=== PATIENT | male | born 1955 | race Caucasian/White ===

== ENCOUNTER 2023-05-12 07:57 | Outpatient (CLI) | payer OTHER, SELFPAY ==
[2023-05-15 14:15] LABS: FSH 5.7 mIU/mL (1.6-8.0)
[2023-05-16 17:28] LABS: Testosterone Free 64.1 pg/mL (35.0-155.0); Testosterone Total 366 ng/dL (250-1100)
== END 2023-05-12 07:58 | disposition home or self-care (01) ==
PROVIDERS: PCP Family Medicine; Visit Provider Family Medicine
DX: R53.83 Other fatigue (principal)
CPT/HCPCS: 36415; 82607; 83001; 83002; 84402; 84403

== ENCOUNTER 2023-10-12 08:47 | Emergency (ER) | payer OTHER, SELFPAY ==
[2023-10-12 08:57] VITALS: BP 147/96; PULSE 77; RESP 16; TEMP 37; O2SAT 100
--- NOTE | 2023-10-12 09:38 | ED.BACK ---
HPI - Back Pain/Injury General Chief Complaint: Back Pain/Injury Stated Complaint: R HIP/LEG PAIN Time Seen by Provider: 10/12/23 09:27 Source: patient and RN notes reviewed Mode of arrival: ambulatory Limitations: no limitations History of Present Illness HPI Narrative: Patient presents today complaining of a 1+ week history of had right low back pain radiating to the right buttock and down to the right ankle. Denies known injury or trauma. States he has had sciatica on the left side in the past and this feels similar. Denies numbness or tingling in the genitals lower leg. Currently rates his pain 9/10 and has been applying ice without relief. He has not tried any [id number] medication for symptoms prior to arrival. Denies loss of bowel or bladder control. Related Data Allergies Allergy/AdvReac Type Severity Reaction Status Date / Time No Known Allergies Allergy Unknown Verified 07/20/23 08:26 Review of Systems Review of Systems: CONSTITUTIONAL: Denies body aches, fever, chills, or sweats. EYES: Denies visual changes, redness, or discharge. ENT: Denies rhinorrhea, congestion, sore throat, or otalgia. CARDIOVASCULAR: Denies chest pain, palpitations, or edema. RESPIRATORY: Denies cough or dyspnea. GASTROINTESTINAL: Denies abdominal pain, nausea, vomiting, or diarrhea. GENITOURINARY: Denies dysuria or hematuria. SKIN: Denies rash, itching, or wounds. MUSCULOSKELETAL: Denies joint pain, or myalgia.+ right low back pain NEUROLOGIC: Denies headache, numbness, tingling, or weakness. PSYCH: Denies depression or anxiety. [facility] Past Medical History Medical History Asthma Hypertension Reactive airway disease Family History Family History Father Malignant neoplasm of prostate Hypertension Mother Diabetes mellitus Hypertension Depression Thyroid disorder Other cirrhosis of liver Social History Social History Smoking status: Former smoker Alcohol intake: former Substance use: unknown Lack of Transportation: No Lack of Food: Never True Current Housing: I Have Housing Concerned About Future Housing: No Difficulty Paying Gas/Electric Bills: No Difficulty Paying for Meds: No Currently Unemployed: No Education: High School Diploma/GED Difficulty w/ Childcare or Family Care: No Comments At time of signature, I have reviewed and agree with nursing past medical, surgical, social and family history unless otherwise noted. Please see nursing chart for further information. There is no relevant family history pertinent to the presenting complaint Exam Narrative: GENERAL: Well-appearing, well-nourished, and in no acute distress. HEAD: Normocephalic, atraumatic. EYES: EOMI. No redness or drainage. Conjunctivae normal. ENT: Mucous membranes pink and moist. NECK: Normal AROM. CHEST: No respiratory distress. MUSCULOSKELETAL: No bony tenderness of the spine. Tenderness of the right lower lumbar paraspinal muscles, that reproduces pain shooting down the right leg. Distal sensation intact. Saddle sensation intact. Capillary refill. Dorsiflexion and plantar flexion equal and strong against resistance. EXTREMITIES: Normal range of motion. No edema. SKIN: Warm, dry, no rash. Capillary refill normal. Normal skin turgor. NEURO: No focal deficits. Alert and oriented x3. Gait steady. PSYCH: Normal affect. No signs of depression or anxiety. Course Course Level of Care: Express Care Visit Vital Signs Vital signs: Vital Signs Temperature 98.6 F 10/12/23 08:57 Pulse Rate 77 10/12/23 08:57 Respiratory Rate 16 10/12/23 08:57 Blood Pressure 147/96 H 10/12/23 08:57 Pulse Oximetry 100 10/12/23 08:57 Temperature 98.6 F 10/12/23 08:57 Pulse Rate 77 10/12/23 08:57 Respirato
== END 2023-10-12 09:48 | disposition home or self-care (01) ==
PROVIDERS: Emergency Provider Nurse Practitioner; PCP Family Medicine
DX: M54.31 Sciatica, right side (principal); Z87.891 Personal history of nicotine dependence; J45.909 Unspecified asthma, uncomplicated; I10 Essential (primary) hypertension
CPT/HCPCS: 99213; G0463

== ENCOUNTER → 2023-10-20 15:02 | Outpatient (CLI) | payer OTHER, SELFPAY ==
--- NOTE | ~2023-10-20 | XR_ITS ---
XR lumbar spine min 4V DATE: 10/20/2023 15:20 INDICATION: Right low back pain, right sciatica TECHNIQUE: AP, lateral, bilateral oblique and coned lateral lumbosacral views COMPARISON: None FINDINGS: Minimal levoscoliosis of the lumbar spine. Normal alignment of the lumbar vertebrae, without evidence of fracture or bone destruction, spondylol ysis or spondylolisthesis. The lumbar pedicles are intact. The sacroiliac joints are intact. There is mild degenerative disc disease at L1-2, L3-4 and L4-5, moderate degenerative disc disease at L2-3 and severe degenerative disc disease at L5-S1. Abdominal aortic calcification, without apparent aneurysm. IMPRESSION: Multilevel degenerative disc disease, most severe at L5-S1 Reviewed, dictated and finalized at location L. ER OPERATOR
== END ==
PROVIDERS: PCP Family Medicine; Visit Provider Family Medicine
DX: M54.41 Lumbago with sciatica, right side (principal); M51.37 Other intervertebral disc degeneration, lumbosacral region
CPT/HCPCS: 72110

== ENCOUNTER 2023-12-07 09:30 | Outpatient (RCR) | payer OTHER, SELFPAY ==
--- NOTE | 2023-11-23 12:50 | OPREHPOC ---
Outpatient Therapy Plan of Care This is a Multidisciplinary Plan of Care that may contain components documented by all disciplines (PT, OT, and ST.) PT Problem 1 PT Problem #1 Knowledge Deficit PT Goal 1 Goal Pt to be IND with issued HEP Target Visit 6 PT Problem 2 PT Problem #2 Pain PT Goal 1 Goal Pt to report hip/low back pain no greater than 3/ 10 in the last week Target Visit 8 PT Goal 2 Goal Pt to report 75% improvement in overall symptoms. Target Visit 8 PT Problem 3 PT Problem #3 Impaired Sensation PT Goal 1 Goal Pt to decline radicular symptoms in the last week Target Visit 8 PT Problem 4 PT Problem #4 Impaired Strength PT Goal 1 Goal Pt to improve BLE strength to grossly 4+/5 Target Visit 8 PT Goal 2 Goal Pt to be able to lift 30lb from ground level without an increase in pain Target Visit 8
--- NOTE | 2023-11-23 12:50 | PTOPEVAL1 ---
Assessment and note entered by Petrona Velazquez, PT, DPT Evaluation Information Assessment Status Evaluation Diagnosis R sided lumbar radiculopathy Onset 2 months Subjective Information Pt reports for the last 2 months he has been getting pain starting in his R ankle that has moved up to his calf, to his buttock, and now into his R hip/SIJ. He states if he is sitting square in a chair he does not have much pain. He states if he rubs his back he gets numbness in his R foot . He reports intermittent R groin pain for the last couple of weeks. He states he was given pain medication at urgent care without any relief. Reported Pain Level Pain Score 3: Self Report Assessment PT Clinical Summary Jeremy presents to therapy today for his initial evaluation with a diagnosis of R sided sciatic pain and lumbar spondylosis. Today he demonstrates a (+) R sided slump test, R piriformis tightness, R hip weakness, and pelvic asymmetries when assessed in supine. He favors his R side during ambulation and has an uneven stride length. Skilled therapy services are indicated to address the deficits noted above, to manage pain, to improve strength, and to return to PLOF. Plan of Care Interventions Electrical Stimulation,Gait Training,Hot Pack/Cold Pack,Manual Therapy,Neuro Re-education,Patient/ Caregiver Educati,Therapeutic Activities, Therapeutic Exercise PT Services Indicated Yes Treatment Frequency and 1x/wk for 6 visits Duration These treatments will address the objective and functional deficits as defined above. The patient will be advanced safely and appropriately in order for the patient to progress towards his/her prior level of function. Additional exercises will be introduced and as well as a comprehensive home exercise program upon discharge, if needed, ?to ensure carryover of functional gains achieved in the clinic. This treatment plan has been reviewed and agreement upon by the patient.
--- NOTE | 2023-12-07 16:23 | PTOPDC ---
Assessment and note entered by Petrona Velazquez, PT, DPT Evaluation Information Assessment Status Discharge - Pt Not Present Diagnosis R sided lumbar radiculopathy Onset 2 months Subjective Information Pt cancelled his remaining appointments this date. He states he can do anything he wants without his back hurting. He wishes to be discharged at this time. Reported Pain Level Pain Score 0,0: Self Report Assessment PT Clinical Summary Jeremy completed 3 visits of skilled therapy. He will be discharged at this time per pt request.
== END 2023-12-08 08:49 | disposition home or self-care (01) ==
LOC: ANHGOSHPT 09:30
PROVIDERS: PCP Family Medicine; Visit Provider Family Medicine
DX: M54.31 Sciatica, right side (principal); M47.816 Spondylosis without myelopathy or radiculopathy, lumbar region
CPT/HCPCS: 97110; 97140; 97161

== ENCOUNTER 2024-03-27 08:01 | Outpatient (CLI) | payer OTHER, SELFPAY ==
[2024-03-27 13:08] LABS: Basophils Percent Auto 0.5 % (0.2-1.2); Eosinophils Absolute Auto 0.6 K/mm3 (0-0.3); Eosinophils Percent Auto 8.3 % (0-4.4); Hematocrit 43.1 % (42.0-52.0); Hemoglobin 14.2 g/dL (14.0-18.0); Immature Granulocyte Absolute 0.02 K/mm3 (0.00-0.031); Immature Granulocyte Percent A 0.3 % (0-0.5); Immature Platelet Fraction Pct 21.1 % (0.9-11.2); Lymphocytes Absolute Auto 2.55 K/mm3 (0.9-3.2); Lymphocytes Percent Auto 33.6 % (18.3-44.2); Mean Corpuscular HGB Conc 32.9 g/dl (32-36); Mean Corpuscular Hemoglobin 31.8 pg (26-34); Mean Corpuscular Volume 96.6 fl (80-100); Monocytes Absolute Auto 0.7 K/mm3 (0.1-0.6); Monocytes Percent Auto 8.6 % (2.6-8.5); Neutrophils Absolute Auto 3.7 K/mm3 (1.3-6.7); Neutrophils Percent Auto 48.7 % (45.5-73.1); Platelet Count Result 115 k/mm3 (150-375); Red Blood Count 4.46 M/mm3 (4.6-6.20); Red Cell Distribution Width 12.9 % (11.5-14.5); White Blood Count 7.6 K/mm3 (4.5-10.0)
[2024-03-27 13:11] LABS: Alanine Aminotransferase 18 U/L (6-50); Albumin Level 4.4 g/dL (3.5-5.1); Alkaline Phosphatase 85 U/L (38-126); Anion Gap 9 mmol/L (4-12); Aspartate Amino Transferase 66 U/L (17-59); Bilirubin,Total 0.9 mg/dL (0.2-1.3); Blood Urea Nitrogen 22 mg/dL (9-20); Calcium 8.8 mg/dL (8.4-10.2); Carbon Dioxide 30 mmol/L (22-30); Chloride 103 mmol/L (98-107); Cholesterol 189 mg/dL (0-200); Estimated Glomerular Filt Rate > 60; Glucose 83 mg/dL (65-110); HDL Direct 42 mg/dL; Sodium 142 mmol/L (137-145); Triglycerides 94 mg/dL (<150)
[2024-03-27 13:21] LABS: LDL Cholesterol Direct 122 mg/dL
[2024-03-27 13:33] LABS: Free T4 Free Thyroxine 0.99 ng/mL (0.78-2.19)
[2024-03-27 13:40] LABS: Prostate Specific Antigen 0.5 ng/mL (< OR = 4.0)
[2024-03-27 13:43] LABS: Platelet Estimate Slightly Decreased (Adequate)
[2024-03-27 13:45] LABS: Anisocytosis 1+; Platelet Clumps Present; Schistocytes None Seen
== END 2024-03-27 08:02 | disposition home or self-care (01) ==
PROVIDERS: PCP Family Medicine; Visit Provider Family Medicine
DX: R53.82 Chronic fatigue, unspecified (principal); E78.5 Hyperlipidemia, unspecified; I10 Essential (primary) hypertension; Z12.5 Encounter for screening for malignant neoplasm of prostate
CPT/HCPCS: 36415; 80053; 80061; 84153; 84439; 84443; 85025; 85055; G0103

== ENCOUNTER 2024-05-11 07:57 | Outpatient (CLI) | payer OTHER, SELFPAY ==
[2024-05-11 13:58] LABS: Basophils Percent Auto 0.4 % (0.2-1.2); Eosinophils Absolute Auto 0.6 K/mm3 (0-0.3); Eosinophils Percent Auto 9.1 % (0-4.4); Hematocrit 43.5 % (42.0-52.0); Hemoglobin 14.6 g/dL (14.0-18.0); Immature Granulocyte Absolute 0.01 K/mm3 (0.00-0.031); Immature Granulocyte Percent A 0.1 % (0-0.5); Lymphocytes Absolute Auto 2.09 K/mm3 (0.9-3.2); Lymphocytes Percent Auto 31.3 % (18.3-44.2); Mean Corpuscular HGB Conc 33.6 g/dl (32-36); Mean Corpuscular Hemoglobin 32.3 pg (26-34); Mean Corpuscular Volume 96.2 fl (80-100); Mean Platelet Volume 12.3 fl (7.4-10.4); Monocytes Absolute Auto 0.6 K/mm3 (0.1-0.6); Monocytes Percent Auto 8.5 % (2.6-8.5); Neutrophils Absolute Auto 3.4 K/mm3 (1.3-6.7); Neutrophils Percent Auto 50.6 % (45.5-73.1); Platelet Count Result 107 k/mm3 (150-375); Red Blood Count 4.52 M/mm3 (4.6-6.20); White Blood Count 6.7 K/mm3 (4.5-10.0)
[2024-05-11 14:22] LABS: Alanine Aminotransferase 19 U/L (6-50); Albumin Level 4.5 g/dL (3.5-5.1); Alkaline Phosphatase 81 U/L (38-126); Anion Gap 10 mmol/L (4-12); Aspartate Amino Transferase 43 U/L (17-59); Bilirubin,Total 0.5 mg/dL (0.2-1.3); Blood Urea Nitrogen 15 mg/dL (9-20); Carbon Dioxide 28 mmol/L (22-30); Chloride 101 mmol/L (98-107); Estimated Glomerular Filt Rate > 60; Glucose 110 mg/dL (65-110); Potassium 3.2 mmol/L (3.4-5.0); Sodium 139 mmol/L (137-145)
[2024-05-11 14:52] LABS: HIV 1/2 Ab P24 Ag Result Negative (Negative)
[2024-05-11 15:48] LABS: Hepatitis C Virus Antibody Negative (Negative)
== END 2024-05-11 07:58 | disposition home or self-care (01) ==
PROVIDERS: PCP Family Medicine; Visit Provider Nurse Practitioner
DX: D69.6 Thrombocytopenia, unspecified (principal); E87.6 Hypokalemia; Z11.4 Encounter for screening for human immunodeficiency virus [HIV]
CPT/HCPCS: 36415; 80053; 85025; 86703; 86803; G0432

== ENCOUNTER 2024-05-17 08:11 | Outpatient (CLI) | payer OTHER, SELFPAY ==
--- NOTE | ~2024-05-17 | CT_ITS ---
CT Scan of the Chest without Contrast: Clinical Indication: Lung cancer screening, nicotine dependence Technique: Contiguous sections were acquired throughout the chest without intravenous contrast. Dose reduction technique was used on this scan by utilizing automated exposure control and iterative recon struction technique. The dose-length product (DLP) was 150.69 mGy-cm. Findings: There is no evidence of any significant mediastinal, hilar or axillary lymphadenopathy. The mediastin al soft tissues appear normal. There is no evidence of pleural or pericardial effusion. The lungs are clear. No pulmonary nodules or infiltrates are noted. Images through the upper abdomen reveal no abnormalities. Impression: Lung RADS 1: Negative. 12 month follow-up screening CT advised. Reviewed, dictated and finalized at location . Impression: Lung RADS 1: Negative. 12 month follow-up screening CT advised.
== END 2024-05-17 08:12 ==
LOC: GOSHIMG 08:12
PROVIDERS: PCP Nurse Practitioner; Visit Provider Nurse Practitioner
DX: Z12.2 Encounter for screening for malignant neoplasm of respiratory organs (principal); Z87.891 Personal history of nicotine dependence
CPT/HCPCS: 71271

== ENCOUNTER 2024-06-21 14:28 | Outpatient (CLI) | payer OTHER, SELFPAY ==
[2024-06-21 15:07] LABS: Basophils Percent Auto 0.4 % (0.2-1.2); Eosinophils Absolute Auto 0.7 K/mm3 (0-0.3); Hematocrit 42.8 % (42.0-52.0); Hemoglobin 14.6 g/dL (14.0-18.0); Immature Granulocyte Absolute 0.02 K/mm3 (0.00-0.031); Immature Granulocyte Percent A 0.2 % (0-0.5); Lymphocytes Absolute Auto 3.09 K/mm3 (0.9-3.2); Lymphocytes Percent Auto 34.6 % (18.3-44.2); Mean Corpuscular HGB Conc 34.1 g/dl (32-36); Mean Corpuscular Hemoglobin 31.4 pg (26-34); Mean Platelet Volume 10.4 fl (7.4-10.4); Monocytes Absolute Auto 0.7 K/mm3 (0.1-0.6); Monocytes Percent Auto 8.3 % (2.6-8.5); Neutrophils Absolute Auto 4.3 K/mm3 (1.3-6.7); Neutrophils Percent Auto 48.5 % (45.5-73.1); Platelet Count Result 217 k/mm3 (150-375); Red Blood Count 4.65 M/mm3 (4.6-6.20); Red Cell Distribution Width 13.2 % (11.5-14.5); White Blood Count 8.9 K/mm3 (4.5-10.0)
[2024-06-21 16:40] LABS: Alanine Aminotransferase 19 U/L (6-50); Albumin Level 4.7 g/dL (3.5-5.1); Alkaline Phosphatase 90 U/L (38-126); Anion Gap 9 mmol/L (4-12); Aspartate Amino Transferase 28 U/L (17-59); Bilirubin,Total 0.6 mg/dL (0.2-1.3); Blood Urea Nitrogen 18 mg/dL (9-20); Calcium 8.9 mg/dL (8.4-10.2); Carbon Dioxide 29 mmol/L (22-30); Chloride 101 mmol/L (98-107); Estimated Glomerular Filt Rate > 60; Glucose 86 mg/dL (65-110); Potassium 2.9 mmol/L (3.4-5.0); Sodium 139 mmol/L (137-145)
[2024-06-21 17:16] LABS: Iron 80 ug/dL (49-181)
[2024-06-21 17:26] LABS: Percent Iron Saturation 22 % (20-50)
[2024-06-21 17:46] LABS: Folic Acid 8.8 ng/mL (2.76->20)
[2024-06-26 22:23] LABS: Platelet Antibody, Direct NEGATIVE (NEGATIVE)
[2024-06-27 17:03] LABS: Methylmalonic Acid 230 nmol/L (69-390)
[2024-06-28 15:19] LABS: Soluble Transferrin Receptor 1.23 mg/L (0.76-1.76)
== END 2024-06-21 14:29 | disposition home or self-care (01) ==
LOC: ANHLAB 14:30
PROVIDERS: PCP Family Medicine; Visit Provider Internal Medicine Hematology & Oncology
DX: D64.9 Anemia, unspecified (principal); D69.59 Other secondary thrombocytopenia
CPT/HCPCS: 36415; 80053; 82607; 82728; 82746; 83540; 83550; 83921; 84238; 85025; 86023

== ENCOUNTER 2024-07-03 09:20 | Outpatient (CLI) | payer OTHER, SELFPAY ==
--- NOTE | ~2024-07-03 | US_ITS ---
Abdominal Sonogram: Real-time sonographic imaging of the abdomen was performed. Clinical History: Secondary thrombocytopenia Findings: The liver appears normal with no evidence of mass lesion or bile duct dilatation. Main por janusz vein demonstrates normal direction of flow. The spleen is normal in size without evidence of foca l lesion. The gallbladder is well distended, and appears normal with no evidence of gallstone or wal l thickening. The common bile duct measures 4 mm. The visualized pancreas, aorta, and IVC are unrema rkable. The right kidney measures 11.6 cm in length and the left kidney measures 10.8 cm. There is no hydronephrosis or renal calculus. Impression: Unremarkable abdominal ultrasound. Reviewed, dictated and finalized at location . Impression: Unremarkable abdominal ultrasound.
== END 2024-07-03 09:21 | disposition home or self-care (01) ==
LOC: ANHIMG 09:29
PROVIDERS: PCP Family Medicine; Visit Provider Internal Medicine Hematology & Oncology
DX: D69.59 Other secondary thrombocytopenia (principal)
CPT/HCPCS: 76700

== ENCOUNTER 2024-07-03 10:53 | Outpatient (CLI) | payer OTHER, SELFPAY ==
[2024-07-03 12:20] LABS: Alanine Aminotransferase 22 U/L (6-50); Albumin Level 4.6 g/dL (3.5-5.1); Alkaline Phosphatase 83 U/L (38-126); Anion Gap 7 mmol/L (4-12); Aspartate Amino Transferase 29 U/L (17-59); Bilirubin,Total 0.9 mg/dL (0.2-1.3); Blood Urea Nitrogen 17 mg/dL (9-20); Calcium 9.1 mg/dL (8.4-10.2); Carbon Dioxide 31 mmol/L (22-30); Chloride 102 mmol/L (98-107); Estimated Glomerular Filt Rate > 60; Glucose 115 mg/dL (65-110); Potassium 3.2 mmol/L (3.4-5.0); Sodium 140 mmol/L (137-145)
== END 2024-07-03 10:54 | disposition home or self-care (01) ==
PROVIDERS: PCP Family Medicine; Referring Provider Family Medicine; Visit Provider Internal Medicine Hematology & Oncology
DX: E87.6 Hypokalemia (principal)
CPT/HCPCS: 36415; 80053

== ENCOUNTER 2024-07-09 07:52 | Outpatient (CLI) | payer OTHER, SELFPAY ==
[2024-07-09 17:09] LABS: Anion Gap 9 mmol/L (4-12); Blood Urea Nitrogen 17 mg/dL (9-20); Calcium 8.9 mg/dL (8.4-10.2); Carbon Dioxide 31 mmol/L (22-30); Chloride 101 mmol/L (98-107); Estimated Glomerular Filt Rate > 60; Glucose 81 mg/dL (65-110); Potassium 3.2 mmol/L (3.4-5.0); Sodium 141 mmol/L (137-145)
== END 2024-07-09 07:53 | disposition home or self-care (01) ==
PROVIDERS: PCP Family Medicine; Visit Provider Family Medicine
DX: E87.6 Hypokalemia (principal)
CPT/HCPCS: 36415; 80048

== ENCOUNTER 2024-08-06 08:05 | Outpatient (CLI) | payer OTHER, SELFPAY ==
[2024-08-06 20:30] LABS: Anion Gap 6 mmol/L (4-12); Blood Urea Nitrogen 23 mg/dL (9-20); Calcium 8.7 mg/dL (8.4-10.2); Carbon Dioxide 32 mmol/L (22-30); Chloride 102 mmol/L (98-107); Estimated Glomerular Filt Rate > 60; Glucose 114 mg/dL (65-110); Potassium 3.1 mmol/L (3.4-5.0); Sodium 140 mmol/L (137-145)
== END 2024-08-06 08:06 | disposition home or self-care (01) ==
LOC: ANHGOSHLAB 08:06
PROVIDERS: PCP Family Medicine; Visit Provider Family Medicine
DX: E87.6 Hypokalemia (principal)
CPT/HCPCS: 36415; 80048

== ENCOUNTER 2024-10-05 08:01 | Outpatient (CLI) | payer OTHER, SELFPAY ==
[2024-10-05 18:23] LABS: Anion Gap 8 mmol/L (4-12); Blood Urea Nitrogen 15 mg/dL (9-20); Calcium 8.6 mg/dL (8.4-10.2); Carbon Dioxide 33 mmol/L (22-30); Chloride 99 mmol/L (98-107); Estimated Glomerular Filt Rate > 60; Glucose 87 mg/dL (65-110); Potassium 3.1 mmol/L (3.4-5.0); Sodium 140 mmol/L (137-145)
--- OUTSIDE RECORDS SUMMARY | 2024-10-11 05:16 | XMS_ITS | Continuity of Care Document ---
Author Organization [facility] Address [address] [place] [address] [address] [place] [address] Phone Care Team Providers Care Chemical Dependency Therapist Name Role Phone Jenny Rodriguez Unavailable Unavailable Advance Directives Directive Yes / No Effective Date File Name No Information Encounters Encounter Description Practice Location Reason(s) For Visit Diagnoses Date Provider Providers Copied on Encounter [facility], [address], [place], [place], [id number], [place] tel:[phone] [facility] No Information Mar-2 0-200 0 Jennifer Alvarado. [address] , [address], [place], [address], [place]. tel:[phone] Family History Family Member Type Diagnosis Age At Onset No Information Payers Payer name Insurance type Covered libertarian ID Authoriza tion(s) No Information Social History [...]
--- OUTSIDE RECORDS SUMMARY | 2024-10-11 05:16 | XMS_ITS | Clinical Summary ---
Author Organization [facility] [address] Address [address] [place] [address] Care Team Providers Care Malt Specifications Control Assistant Name Role Phone Radha Donaldson Primary Care Provider + Allergies No known active allergies Medications albuterol sulfate HFA 90 mcg/actuation aerosol inhaler INHALE 1 PUFF BY MOUTH EVERY 4 HOURS NEEDED FOR SHORTNESS OF BREATH OR WHEEZING Active amLODIPine (NORVASC) 10 mg tablet Take 1 Tablet by mouth daily. 4 Active hydroCHLOROthia zide 25 mg tablet Take 1 Tablet by mouth daily. 4 Active potassium chloride (KLOR-CON) 10 mEq Extended Release tablet Take 1 Tablet by mouth daily. 4 Active Active Problems No known active problems Encounters Date Type Department Care Team Description 10/02/2024 External Device Data STL ABSTRACTION Provider, Abstract 2024 External Device Data STL ABSTRACTION Provider, Abstract 07/11/2024 2:30 PM CDT Office Visit [facility] Oncology and Hematology - Joe [address] [facility] [address] [place] [address] Addison Venegas MD Other secondary thrombocytopenia (Primary Dx) from Last 3 Months Family History Medical History Relation Name Comments Diabetes Brother 1 Diabetes Brother 2 Lymphoma Father Prostate Cancer Father Diabetes Mother Prostate Cancer Paternal Uncle Relation Name Status Comments Brother 1 Alive Brother 2 Alive Father Mother Paternal Uncle Social History Tobacco Use Types Packs/Day Years Used Date Smoking Tobacco: Former Cigarettes 0.3 30 Q uit: 06/21/2020 Tobacco Cessation:Counseling Given: Not Answered Alcohol Use Standard Drinks/Week Comments Not Currently 0 (1 standard drink = 0.6 oz pur e alcohol) Sex and Gender Information Value Date Recorded Sex Assigned at Not on file 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 Gender Identity Not on file Sexual Orientation Not on file Last Filed Vital Signs Vital Sign Reading Time Taken Comments Blood Pressure 158/71 07/11/2024 2:10 PM CDT Pulse 65 07/11/2024 2:10 PM CDT Temperature 36.7 ??C (98 ??F) 07/11/2024 2:10 PM CDT Respiratory Rate 14 07/11/2024 2:10 PM CDT Oxygen Saturation 96% 07/11/2024 2:10 PM CDT Inhaled Oxygen Concentration - - Weight 81.6 kg (180 lb) 07/11/2024 2:10 PM CDT Height 165.1 cm (5' 5 ) 06/21/2024 1:39 PM CDT Body Mass Index 29.95 06/21/2024 1:39 PM CDT Plan of Treatment Health Maintenance Due Date Last Done Comments Pre-Diabetes and Diabetes Screening 1957 DTAP/TDAP/TD VACCINES (1 - Tdap) 1976 PNEUMOCOCCAL VACCINE 65+ YEARS (1 of 2 - PCV) 08/21/19 76 COLORECTAL SCREENING 2002 Colorectal Cancer Screening 2002 FIT-DNA Q 3 years 2002 FIT/FOBT Q 1 year 2002 Flex Sig/CT Colonography Q 5 years 2002 ZOSTER VACCINE (1 of 2) 2007 RSV VACCINE (60+ or ) (1 - Risk 60-74 years 1-dose series) 2017 INFLUENZA VACCINE (#1) 2024 Abdominal Aortic Aneurysm (AAA) Screening Completed 07/03/2024 Procedures Procedure Name Priority Date/Time Associated Diagnosis Comments US ABDOMEN COMPLETE Routine 07/03/2024 1:17 PM CDT from Last 3 Months or Most Recently Relevant to Health Maintenance Results * US ABDOMEN COMPLETE (07/03/2024 1:17 PM CDT) Anatomical Region Laterality Modality Abdomen Other Addison Venegas MD US ORDERABLES Final Result from Last 3 Months or Most Recently Relevant to Health Maintenance Insurance [facility] Care Teams Malt Specifications Control Assistant Relationship Specialty Start Date End Date Radha Donaldson DO [facility] [place] [address] PCP - General Family Practice 07/11/24
--- OUTSIDE RECORDS SUMMARY | 2024-10-11 05:16 | XMS_ITS | Encounter Summary ---
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
--- OUTSIDE RECORDS SUMMARY | 2024-10-11 05:16 | XMS_ITS | CONTINUITY OF CARE DOCUMENT ---
Author Name arturo morris Address Unknown Organization [facility] Address [address] [place] [address] Phone [phone] Care Team Providers Care Photographic Equipment Mechanic Name Role Phone Kavitha CRESPO, Josey Grubbs Unavailable [phone] HOPCHANTAL RAMAKRISHNA Unavailable [phone] HOPCLAUDE CORNEJOIE Unavailable [phone] PROBLEMS Condition Status Date Provider Notes Edema active Jose Diaz Abnormal electrocardiogram active Josey Plummer MD Sleep apnea active Josey Plummer MD COPD active Josey Plummer MD HTN essential active Josey Plummer MD Cardiovascular screening active Josey trinh MD ENCOUNTERS Date Type Provider Location Encounter Diag nosis - In-person encounter Office Visit Josey Plummer MD [facility] Cardiovascular screeningHTN essentialCOPDSleep apneaAbnormal electrocardiogram VITAL SIGNS Date Observation Value Provider Body Mass Index (Ratio) 32.73 kg/m2 Ericka Plummer MD blood pressure, cuff size large Cr monica Gaines blood pressure, diastolic 100 mm[Hg] Cr monica Gaines blood pressure, systolic 150 mm[Hg] Cry sarah bethl Eder oxygen saturation, oximetry 97 % Sierra Gaines respiratory rate E&M 17 /min Sierra Gaines pulse rate 70 /min Sierra cordon blood pressure, resting Yes Ava janusz Gaines weight E&M 209 [lb_av] Sierra cordon height E&M 67 [in_i] Sierra cordon HISTORY OF MEDICATION USE Medication Status Instructions Dates Provider Indications Com ments NORVASC 5 MG ORAL TABLET active ONE TAB. DAILY Josey Plummer MD SINGULAIR 10 MG ORAL TABLET active take one tablet by mouth once daily Sierra Gaines LISINOPRIL-HYDROC HLOROTHIAZIDE 20-25 MG ORAL TABLET active take one tablet by mouth once daily Sierra Gaines GNP FLUTICASONE PROPIONATE 50 MCG/ACT NASAL SUSPENSION active spray 2 sprays daily Sierra Gaines ALBUTEROL SULFATE HFA 108 (90 BASE) MCG/ACT INHALATION AEROSOL SOLUTION active inhae 2 puffs by mouth every 4 hours Sierra Gaines SOCIAL HISTORY Date Observation Value Provider number of grandchildren Josey Plummer MD number of years as a smoker 30 a Sierra Gaines smoking history, total pack/day 1 Sierra Gaines cigarette use yes Sierra Finney ms smoking status Former smoker Sierra Garrido ia FAMILY HISTORY Family Member Condition Father Family History of Pr ostate Cancer: Mother Family History of Di abetes: INSURANCE PROVIDERS Payer name Policy type / Coverage type [place] red republican ID [id number] (2[facility] Medicaid [id number] ADVANCE DIRECTIVES Name Date DISCUSSED - NO DECISION MADE TREATMENT PLAN Date Name Performer Cardiology:Needs to have stress test done, poor R wave progression. Cannot walk, will need to get lexiscan. He may have some SOB due to his COPD. Josey Plummer MD Cardiology:Needs sle ep study done. Most likely has significant sleep apnea based on his sleep descriptions. Josey Plummer MD Cardiology: H is updated medication list for this problem includes: Norvasc 5 Mg Oral Tablet (Amlodipine besylate) ..... One tab. daily Lisinopril-hydrochlorothiazide 20-25 Mg Oral Tablet (Lisinopril-hydrochlorothiazide) ..... Take one tablet by mouth once daily BP today: 150/100 Add Norvasc 5 mg Josey Plummer MD Cardiology:Seeing pulmonary next week. Josey Plummer MD Date Name Venous Doppler Bilat eral LE Stress Regadenoson HISTORY OF PROCEDURES Procedure Date Procedure Name Provider Procedure Notes S tatus Regadenoson, 4 units Josey Plummer MD completed Cardiolite, 2 units Josey Plummer MD completed SPECT Images Josey Plummer MD com pleted Stress EKG Josey Plummer MD compl eted EKG Josey Plummer MD compl eted
== END 2024-10-05 08:02 | disposition home or self-care (01) ==
LOC: ANHGOSHLAB 08:02
PROVIDERS: PCP Family Medicine; Visit Provider Family Medicine
DX: E87.6 Hypokalemia (principal)
CPT/HCPCS: 36415; 80048

== ENCOUNTER 2024-11-27 08:02 | Outpatient (CLI) | payer OTHER, SELFPAY ==
--- OUTSIDE RECORDS SUMMARY | 2024-11-27 08:09 | XMS_ITS | Encounter Summary ---
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
--- OUTSIDE RECORDS SUMMARY | 2024-11-27 08:09 | XMS_ITS | CONTINUITY OF CARE DOCUMENT ---
Author Name arturo morris Address Unknown Organization [facility] Address [address] [place] [address] Phone [phone] Care Team Providers Care Box Folding Machine Operator Name Role Phone Kavitha CRESPO, Josey Grubbs Unavailable HOPCHANTAL RAMAKRISHNA Unavailable [phone] HOPCHANTAL RAMAKRISHNA Unavailable [phone] PROBLEMS Condition Status Date Provider Notes Edema active Jose Diaz Cardiovascular screening active Josey trinh MD HTN essential active Josey Plummer MD COPD active Josey Plummer MD Sleep apnea active Josey Plummer MD Abnormal electrocardiogram active Josey Plummer MD ENCOUNTERS Date Type Provider Location Encounter Diag nosis - In-person encounter Office Visit Josey Plummer MD [facility] Cardiovascular screeningHTN essentialCOPDSleep apneaAbnormal electrocardiogram VITAL [...] Payer name Policy type / Coverage type [place] red constitution party ID [facility] (2) Medicaid [id number] ADVANCE DIRECTIVES Name Date DISCUSSED - NO [...]
--- OUTSIDE RECORDS SUMMARY | 2024-11-27 08:10 | XMS_ITS | Clinical Summary ---
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 Gender Identity Not on file Sexual Orientation Not on file Last Filed Vital Signs Vital Sign Reading Time Taken Comments Blood Pressure 158/71 07/11/2024 2:10 PM CDT Pulse 65 07/11/2024 2:10 PM CDT Temperature 36.7 C (98 F) 07/11/2024 2:10 PM CDT Respiratory Rate 14 [...] VACCINES (1 - Tdap) 1976 PNEUMOCOCCAL VACCINE 50+ YEARS (1 of 2 - PCV) 08/21/19 [...] Most Recently Relevant to Health Maintenance Insurance [facility] Care Teams Electronics Supervisor Relationship Specialty Start Date End Date Radha Donaldson DO [address] [place] [id number] PCP - General Family Practice 07/11/24
--- OUTSIDE RECORDS SUMMARY | 2024-11-27 08:10 | XMS_ITS | Continuity of Care Document ---
Author Organization [facility] Address [address] [place] [address] [address] [place] [address] Phone Care Team Providers Care Material Mixer Name Role Phone Jenny Rodriguez Unavailable Unavailable Advance Directives Directive Yes / No Effective Date File Name No Information Encounters Encounter Description Practice Location Reason(s) For Visit Diagnoses Date Provider Providers Copied on Encounter [facility], [address], [place], [place], [id number], [place] tel:[phone] [facility] No Information Mar-2 0-200 0 Jennifer Alvarado. [address] , [address], [place], [address], [place]. tel:[phone] Family History Family Member Type Diagnosis Age [...]
[2024-11-27 13:34] LABS: Basophils Percent Auto 0.6 % (0.2-1.2); Eosinophils Absolute Auto 0.9 K/mm3 (0-0.3); Eosinophils Percent Auto 12.4 % (0-4.4); Hematocrit 43.9 % (42.0-52.0); Hemoglobin 14.7 g/dL (14.0-18.0); Immature Granulocyte Absolute 0.02 K/mm3 (0.00-0.031); Immature Granulocyte Percent A 0.3 % (0-0.5); Immature Platelet Fraction Pct 19.8 % (0.9-11.2); Lymphocytes Absolute Auto 2.23 K/mm3 (0.9-3.2); Mean Corpuscular HGB Conc 33.5 g/dl (32-36); Mean Corpuscular Hemoglobin 31.9 pg (26-34); Mean Corpuscular Volume 95.2 fl (80-100); Mean Platelet Volume 11.8 fl (7.4-10.4); Monocytes Absolute Auto 0.6 K/mm3 (0.1-0.6); Monocytes Percent Auto 8.6 % (2.6-8.5); Neutrophils Absolute Auto 3.4 K/mm3 (1.3-6.7); Neutrophils Percent Auto 47.1 % (45.5-73.1); Red Blood Count 4.61 M/mm3 (4.6-6.20); Red Cell Distribution Width 12.9 % (11.5-14.5); White Blood Count 7.2 K/mm3 (4.5-10.0)
[2024-11-27 14:01] LABS: Alanine Aminotransferase 25 U/L (6-50); Albumin Level 4.6 g/dL (3.5-5.1); Alkaline Phosphatase 94 U/L (38-126); Anion Gap 9 mmol/L (4-12); Aspartate Amino Transferase 46 U/L (17-59); Bilirubin,Total 0.6 mg/dL (0.2-1.3); Blood Urea Nitrogen 19 mg/dL (9-20); Calcium 9.2 mg/dL (8.4-10.2); Carbon Dioxide 30 mmol/L (22-30); Chloride 102 mmol/L (98-107); Cholesterol 221 mg/dL (0-200); Estimated Glomerular Filt Rate > 60; Glucose 106 mg/dL (65-110); HDL Direct 44 mg/dL; Potassium 3.2 mmol/L (3.4-5.0); Sodium 141 mmol/L (137-145); Triglycerides 143 mg/dL (<150)
[2024-11-27 14:14] LABS: Platelet Clumps Present; Platelet Estimate Adequate (Adequate); Schistocytes None Seen
[2024-11-27 14:16] LABS: LDL Cholesterol Direct 136 mg/dL
[2024-11-27 14:41] LABS: Prostate Specific Antigen 0.8 ng/mL (< OR = 4.0)
[2024-11-27 14:57] LABS: Free T4 Free Thyroxine 1.13 ng/dL (0.78-2.19); Vitamin D 25 Hydroxy 38.9 ng/mL
[2024-11-27 16:44] LABS: Hemoglobin A1C 5.6 % (<5.7)
== END 2024-11-27 08:03 | disposition home or self-care (01) ==
PROVIDERS: PCP Family Medicine; Visit Provider Family Medicine
DX: R53.82 Chronic fatigue, unspecified (principal); I10 Essential (primary) hypertension; E78.2 Mixed hyperlipidemia; D69.6 Thrombocytopenia, unspecified; R73.03 Prediabetes; E55.9 Vitamin D deficiency, unspecified; E87.6 Hypokalemia; R53.83 Other fatigue; R73.9 Hyperglycemia, unspecified; E78.5 Hyperlipidemia, unspecified; Z12.5 Encounter for screening for malignant neoplasm of prostate
CPT/HCPCS: 36415; 80053; 80061; 82306; 83036; 84153; 84439; 84443; 85025; 85055; G0103

== ENCOUNTER 2025-01-04 07:57 | Outpatient (CLI) | payer OTHER, SELFPAY ==
--- OUTSIDE RECORDS SUMMARY | 2025-01-04 08:01 | XMS_ITS | CONTINUITY OF CARE DOCUMENT ---
Author Name arturo morris Address Unknown Organization [facility] Address [address] [place] [address] Phone [phone] Care Team Providers Care Study Manager Name Role Phone Kavitha CRESPO, Josey Grubbs Unavailable [phone] HOPCHANTAL RAMAKRISHNA Unavailable [phone] HOPCHANTAL RAMAKRISHNA Unavailable [phone] PROBLEMS Condition Status Date Provider Notes Edema active Jose Diaz Cardiovascular screening active Josey trinh MD HTN essential active Josey Plummer MD COPD active Josey Plummer MD Sleep apnea active Josey Plummer MD Abnormal electrocardiogram active Josey Plummer MD ENCOUNTERS Date Type Provider Location Encounter Diag nosis - In-person encounter Office Visit Josey Plummer MD [facility] Cardiovascular screeningHTN essentialCOPDSleep apneaAbnormal electrocardiogram VITAL [...] Payer name Policy type / Coverage type [place] red republican [place] [facility] (2[facility] Medicaid [id number] ADVANCE DIRECTIVES Name Date DISCUSSED - NO [...]
--- OUTSIDE RECORDS SUMMARY | 2025-01-04 08:01 | XMS_ITS | Continuity of Care Document ---
Author Organization [facility] Address [address] [place] [address] [address] [place] [address] Phone Care Team Providers Care Fire Adjuster Name Role Phone Jenny Rodriguez Unavailable Unavailable Advance Directives Directive Yes / No Effective Date File Name No Information Encounters Encounter Description Practice Location Reason(s) For Visit Diagnoses Date Provider Providers Copied on Encounter [facility], [address], [place], [place], [id number], [place] tel:[phone] [facility] No Information Mar-2 0-200 0 Jennifer Alvarado. [address] , [address], [place], [address], [place]. tel:[phone] Family History Family Member Type Diagnosis Age At Onset No Information Payers Payer name Insurance type Covered democrat ID Authoriza tion(s) No Information Social History [...]
--- OUTSIDE RECORDS SUMMARY | 2025-01-04 08:01 | XMS_ITS | Encounter Summary ---
Author Organization [facility] Address [address] Attn: Epic Prelude ADT [place] [place] [place] [address] Care Team Providers Care Salt Plant Operator Name Role Phone Radha Donaldson DO Primary Care Provider + Encounter Details Date Type Department Care Team (Late st Contact Info) Description 01/12/1993 Outpatient Historical Conversion, History Social History Tobacco Use Types Packs/Day Years Used Date Smoking Tobacco: Never Assessed Sex and Gender Information Value Date Recorded Sex Assigned at Not on file Legal Sex Male 4:[address]PRETER Gender Identity Not on file Sexual Orientation Not on file documented as of this encounter Plan of Treatment Not on file documented as of this encounter Visit Diagnoses Not on filedocumented in this encounter Care Teams Salt Plant Operator Relationship Specialty Start Date End Date Radha Donaldson DO [address] [place] [id number] PCP - General Family Practice 07/11/24 documented as of this encounter
--- OUTSIDE RECORDS SUMMARY | 2025-01-04 08:01 | XMS_ITS | Clinical Summary ---
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
[2025-01-04 13:44] LABS: Anion Gap 9 mmol/L (4-12); Blood Urea Nitrogen 23 mg/dL (9-20); Calcium 8.8 mg/dL (8.4-10.2); Carbon Dioxide 30 mmol/L (22-30); Chloride 104 mmol/L (98-107); Estimated Glomerular Filt Rate > 60; Glucose 85 mg/dL (65-110); Potassium 3.7 mmol/L (3.4-5.0); Sodium 143 mmol/L (137-145)
== END 2025-01-04 07:58 | disposition home or self-care (01) ==
PROVIDERS: PCP Family Medicine; Visit Provider Family Medicine
DX: E87.6 Hypokalemia (principal)
CPT/HCPCS: 36415; 80048

== ENCOUNTER 2025-05-15 07:57 | Outpatient (CLI) | payer OTHER, SELFPAY ==
--- OUTSIDE RECORDS SUMMARY | 1999-12-07 10:45 | XMS_ITS | Continuity of Care Document ---
Author Organization [facility] Address [address] [place] [address] [address] [place] [address] Phone Care Team Providers Care Rhic Systems Safety Engineer Name Role Phone Jenny Rodriguez Unavailable Unavailable Advance Directives Directive Yes / No Effective Date File Name No Information Encounters Encounter Description Practice Location Reason(s) For Visit Diagnoses Date Provider Providers Copied on Encounter [facility], [address], [place], [place], [id number], [place] tel:[phone] [facility] No Information Mar-2 0-200 0 Jennifer Alvarado. [address] , [address], [place], [address], [place]. tel:[phone] Family History Family Member Type Diagnosis Age At Onset No Information Payers Payer name Insurance type Covered green party ID Authoriza tion(s) No Information Social History Type Description Quantity Date Captured Comments Sex Male Smoking Status No Information Chief Complaint And Reason For Visit No Information Reason For Referral Reason For Referral No Information History Of Present Illness Encounter Date Complaint History Of Prese nt Illness No Information Functional Status Date Functional Assessmen t No Information Instructions Date Instruction Additional Infor mation No Information Assessments Type Assessment Date No Information Patient Care Teams Name Effective Dates (start - stop) Status Members No Information
--- OUTSIDE RECORDS SUMMARY | 2025-05-15 08:00 | XMS_ITS | Clinical Summary ---
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
--- OUTSIDE RECORDS SUMMARY | 2025-05-15 08:00 | XMS_ITS | Encounter Summary ---
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
[2025-05-15 14:22] LABS: Hematocrit 43.5 % (42.0-52.0); Hemoglobin 14.5 g/dL (14.0-18.0); Immature Platelet Fraction Pct 21.8 % (0.9-11.2); Mean Corpuscular HGB Conc 33.3 g/dl (32-36); Mean Corpuscular Hemoglobin 32.4 pg (26-34); Mean Corpuscular Volume 97.3 fl (80-100); Platelet Count Result 97 k/mm3 (150-375); Red Blood Count 4.47 M/mm3 (4.6-6.20); White Blood Count 6.9 K/mm3 (4.5-10.0)
[2025-05-15 14:57] LABS: Band Neutrophils Percent 2 % (0-6); Eosinophils Absolute Manual 0.20 K/mm3 (0.02-0.50); Eosinophils Percent Manual 3 % (0-4); Lymphocytes Absolute Manual 2.00 K/mm3 (1.1-4.5); Lymphocytes Percent Manual 29.0 % (18-44); Monocytes Absolute Manual 1.03 K/mm3 (0.1-0.90); Monocytes Percent Manual 15 % (3-9); Neutrophils Absolute Manual 3.65 K/mm3 (1.3-6.7); Neutrophils Percent Manual 51 % (46-73); Total Cells Counted 100
[2025-05-15 14:58] LABS: Schistocytes None Seen
[2025-05-15 15:55] LABS: Alanine Aminotransferase 19 U/L (6-50); Albumin Level 4.4 g/dL (3.5-5.1); Alkaline Phosphatase 86 U/L (38-126); Anion Gap 10 mmol/L (4-12); Aspartate Amino Transferase 35 U/L (17-59); Bilirubin,Total 0.7 mg/dL (0.2-1.3); Blood Urea Nitrogen 19 mg/dL (9-20); Calcium 8.8 mg/dL (8.4-10.2); Carbon Dioxide 29 mmol/L (22-30); Chloride 101 mmol/L (98-107); Estimated Glomerular Filt Rate > 60; Glucose 101 mg/dL (65-110); Potassium 3.4 mmol/L (3.4-5.0); Sodium 140 mmol/L (137-145); Total Protein 7.3 g/dL (6.3-8.2)
[2025-05-15 18:20] LABS: MALB Creatinine Ratio 39.2 mg/g (0-30)
== END 2025-05-15 07:58 | disposition home or self-care (01) ==
LOC: ANHGOSHLAB 07:57
PROVIDERS: PCP Family Medicine; Visit Provider Clinical Nurse Specialist
DX: D69.6 Thrombocytopenia, unspecified (principal); I10 Essential (primary) hypertension; R73.01 Impaired fasting glucose
CPT/HCPCS: 36415; 80053; 82043; 85025; 85055